=== PATIENT | female | born 1995 | race Caucasian/White ===

== ENCOUNTER 2022-09-29 14:14 | Emergency (ER) | payer SELFPAY ==
[~2022-09-29] VITALS: Ht 167.6 cm; Wt 79.5 kg
[2022-09-29 14:46] VITALS: BP 138/99
[2022-09-29 15:00] VITALS: BP 134/102
[2022-09-29 15:15] VITALS: BP 127/100
[2022-09-29 15:31] VITALS: BP 130/91
[2022-09-29] MEDS ORDERED: PENICILLN VK500 MG PO (15:37)
[2022-09-29 15:46] VITALS: BP 130/91
== END 2022-09-29 15:46 | disposition home or self-care (01) | DRG 159 ==
LOC: ED 14:14
DX: K04.7 Periapical abscess without sinus (principal); S02.5XXA Fracture of tooth (traumatic), initial encounter for closed fracture; F17.210 Nicotine dependence, cigarettes, uncomplicated; X58.XXXA Exposure to other specified factors, initial encounter

== ENCOUNTER 2022-12-08 00:03 | Emergency (ER) | payer SELFPAY ==
[~2022-12-08 00:03] MED LIST: PENICILLN VK500 MG PO
== END 2022-12-08 00:21 | disposition left against medical advice (07) | DRG 951 ==
LOC: ED 00:03
DX: Z53.21 Procedure and treatment not carried out due to patient leaving prior to being seen by health care provider (principal)

== ENCOUNTER 2022-12-11 01:41 | Emergency (ER) | payer SELFPAY ==
[~2022-12-11] VITALS: Ht 167.6 cm; Wt 63.5 kg
[2022-12-11] MEDS ORDERED: BACTRIM DS1 TAB PO (01:55)
[2022-12-11 02:10] VITALS: BP 126/85
== END 2022-12-11 02:10 | disposition home or self-care (01) | DRG 607 ==
LOC: ED 01:41
DX: L73.9 Follicular disorder, unspecified (principal)